=== PATIENT | female | born 1975 ===

== ENCOUNTER 2018-04-16 06:30 | Inpatient (IN) | payer OTHER ==
[~2018-04-16] VITALS: Ht 157.5 cm; Wt 83.0 kg
[~2018-04-16 06:30] MED LIST: TYLENOL-CODEINE1 TAB PO
[2018-04-16] MEDS ORDERED: OBSTETRIX EC C1 EACH PO (08:15)
[2018-04-18] MEDS ORDERED: CODE1TAB37 PO (09:20)
== END 2018-04-18 12:53 | disposition home or self-care (01) | DRG 775 ==
LOC: LDR 06:30 → OB/GYN 06:30 → LDR 10:14 → OB/GYN 16:00
PROC: 0KQM0ZZ Repair Perineum Muscle, Open Approach (ICD-10-PCS; principal; 2018-04-16)
PROC: 10E0XZZ Delivery of Products of Conception, External Approach (ICD-10-PCS; 2018-04-16)
PROC: 3E033VJ Introduction of Other Hormone into Peripheral Vein, Percutaneous Approach (ICD-10-PCS; 2018-04-16)
PROC: 4A033R1 Measurement of Arterial Saturation, Peripheral, Percutaneous Approach (ICD-10-PCS; 2018-04-16)
DX: O70.1 Second degree perineal laceration during delivery (principal); Z37.0 Single live birth; O41.03X0 Oligohydramnios, third trimester, not applicable or unspecified; Z3A.38 38 weeks gestation of pregnancy